=== PATIENT | female | born 1960 | race Caucasian/White ===

== ENCOUNTER 2019-12-29 06:33 | Day surgery (SDC) | payer BC ==
[~2019-12-29 06:33] MED LIST: Lactated Ringers 1,000 ML IV SCH; Lidocaine 1%/Sod Bicarbonate in NS 8.4% 1 ML Syringe IDERM PRN; Sodium Chloride 0.9% 10 ML Syringe FLUSH PRN
[2019-12-29] MEDS ORDERED: Propofol 200 MG/20 ML SDV ONE ×2 (07:21→08:15)
[2019-12-29] MEDS ORDERED: Lidocaine 1% 4 ML ONE (07:21)
[2019-12-29] MEDS ORDERED: fentaNYL 100 MCG/2 ML SDV ONE (07:22)
--- NOTE | 2019-12-29 07:28 | PCM.PREANE ---
Preanesthetic Assessment - Procedure Proposed Procedure: coolonoscopy - Anesthesia/Transfusion/Family Hx Anesthesia History: Prior Anesthesia Without Reaction Family History of Anesthesia Reaction: No Transfusion History: No Prior Transfusion(s) - Review of Systems General: No Symptoms Pulmonary: No Symptoms Cardiovascular: No Symptoms Gastrointestinal: No Symptoms Neurological: No Symptoms Other: Reports: Anxiety - Physical Assessment NPO Status Date: 12/29/19 NPO Status Time: 04:00 Vital Signs: Last Vital Signs Temp 98.0 F 12/29/19 06:40 Pulse 78 12/29/19 06:40 Resp 16 12/29/19 06:40 BP 146/82 H 12/29/19 06:40 Pulse Ox 96 12/29/19 06:40 Height: 5 ft 1 in Weight: 69.853 kg ASA Class: 2 Mental Status: Alert & Oriented x3 Airway Class: Mallampati = 1 Dentition: Reports: Normal Dentition Thyro-Mental Finger Breadths: 3 Mouth Opening Finger Breadths: 3 ROM/Head Extension: Full Lungs: Clear to Auscultation, Normal Respiratory Effort Cardiovascular: Regular Rate, Regular Rhythm - Allergies Allergies/Adverse Reactions: Allergies Allergy/AdvReac Type Severity Reaction Status Date / Time nickel Allergy Rash Verified 12/28/19 13:17 - Blood Blood Available: No - Acknowledgements Anesthesia Type Planned: MAC Pt an Appropriate Candidate for the Planned Anesthesia: Yes Alternatives and Risks of Anesthesia Discussed w Pt/Guardian: Yes Pt/Guardian Understands and Agrees with Anesthesia Plan: Yes PreAnesthesia Questionnaire HEENT History: Reports: Impaired Vision Cardiovascular History: Reports: High Cholesterol Respiratory History: Reports: None Gastrointestinal History: Reports: None Genitourinary History: Reports: None 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 Musculoskeletal History: Reports: None Neurological History: Reports: None Psychiatric History: Reports: Anxiety Endocrine/Metabolic History: Reports: None Hematologic History: Reports: None Immunologic History: Reports: None Oncologic (Cancer) History: Reports: None 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 - Past Surgical History Head Surgeries/Procedures: Reports: None HEENT Surgical History: Reports: Oral Surgery Cardiovascular Surgical History: Reports: None Respiratory Surgical History: Reports: None GI Surgical History: Reports: None Female Surgical History: Reports: Section, Tubal Ligation Endocrine Surgical History: Reports: None Neurological Surgical History: Reports: None Musculoskeletal Surgical History: Reports: None Dermatological Surgical History: Reports: None - SUBSTANCE USE Smoking Status *Q: Former Smoker Tobacco Use Within Last Twelve Months: No Second Hand Smoke Exposure: No Days Per Week of Alcohol Use: 1 Recreational Drug Use History: No - HOME MEDS Home Medications: Home Meds Multivitamin [Daily Multiple Vitamin] 1 tab PO DAILY 12/28/19 [History] Cetirizine [ZyrTEC] 1 tab PO ASDIRECTED 12/29/19 [History] - CURRENT (IN HOUSE) MEDS Current Meds: Current Medications Lactated Ringer's (Ringers, Lactated) 1,000 mls @ 125 mls/hr IV ASDIRECTED DIMA Stop: 12/29/19 23:00 Last Admin: 12/29/19 06:50 Dose: 125 mls/hr Lidocaine/Sodium Bicarbonate (Buffered Lidocaine 1% In Ns 8.4%) 0.25 ml IDERM ONETIME PRN PRN Reason: Prior to IV Start Stop: 12/29/19 18:00 Last Admin: 12/29/19 06:50 Dose: 0.25 ml Sodium Chloride (Saline Flush) 10 ml FLUSH ASDIRECTED PRN PRN Reason: Keep Vein Open Stop: 12/29/19 18:00
--- NOTE | 2019-12-29 08:26 | PCM.PRNOTE ---
- Free Text/Narrative Note: Date: 12/29/2019 Procedure: screening colonoscopy Endoscopist: Kirk Colin MD Findings: Ileocecal valve visualized. Prep was fair. Detailed Report: The patient was taken to the endoscopy suite and placed in left lateral decubitus position. Time out was performed and monitored anesthesia care was initiated. The anus appeared normal. Digital rectal exam was unremarkable. The lubricated colonoscope was then inserted and advanced all the way to the cecum. The ileocecal valve was visualized. The prep was noted to be fair, with copious fluffy effluent requiring continuous irrigation and suctioning to obtain visualization of mucosa. On slow withdrawal of the scope, mucosal surfaces were carefully inspected. A sessile polyp was resected with hot forceps just adjacent to the IC valve, and base was fulgurated. An additional very small sessile polyp was identified and treated in identical fashion in the sigmoid colon. There was mild sigmoid diverticular disease. No hemorrhoids appreciated on retroflexion of the scope within the rectum. The patient tolerated the procedure well. Kirk Colin MD General Surgery
--- NOTE | 2019-12-29 08:31 | PCM48HPAN ---
Post Anesthesia Note - EVALUATION WITHIN 48HRS OF ANESTHETIC Vital Signs in Normal Range: Yes Patient Participated in Evaluation: Yes Respiratory Function Stable: Yes Airway Patent: Yes Cardiovascular Function Stable: Yes Hydration Status Stable: Yes Pain Control Satisfactory: Yes Nausea and Vomiting Control Satisfactory: Yes Mental Status Recovered: Yes Vital Signs: Last Vital Signs Temp 97.8 F 12/29/19 08:25 Pulse 76 12/29/19 08:25 Resp 12 12/29/19 08:25 BP 128/81 12/29/19 08:25 Pulse Ox 96 12/29/19 08:25
== END 2019-12-29 09:15 | disposition home or self-care (01) ==
LOC: JD.SDS 06:33
PROVIDERS: ATTEND Surgery
DX: Z12.11 Encounter for screening for malignant neoplasm of colon (principal); D12.0 Benign neoplasm of cecum; K63.5 Polyp of colon; K57.30 Diverticulosis of large intestine without perforation or abscess without bleeding; I10 Essential (primary) hypertension; E78.00 Pure hypercholesterolemia, unspecified; Z91.048 Other nonmedicinal substance allergy status; Z87.891 Personal history of nicotine dependence
CPT/HCPCS: 45384; J2001; J2704; J3010; J7120; 00812

== ENCOUNTER 2023-11-19 07:02 | Day surgery (SDC) | payer BC ==
[~2023-11-19 07:02] MED LIST changes: -Lidocaine 1%/Sod Bicarbonate in NS 8.4% 1 ML Syringe IDERM PRN; +Sodium Chloride 0.9% 10 ML Syringe FLUSH SCH
[2023-11-19] MEDS ORDERED: Propofol 200 MG/20 ML SDV ONE ×2 (07:41→08:23)
[2023-11-19] MEDS ORDERED: Lidocaine 2% 5 ML SDV ONE (07:44)
[2023-11-19] MEDS ORDERED: HYDROmorphone 0.5 MG/0.5 ML Syringe IVPUSH PRN (08:05)
[2023-11-19] MEDS ORDERED: Ondansetron 4 MG/2 ML SDV IVPUSH PRN (08:05)
[2023-11-19] MEDS ORDERED: fentaNYL 100 MCG/2 ML SDV IVPUSH PRN (08:05)
== END 2023-11-19 10:00 | disposition home or self-care (01) ==
LOC: JD.SDS 07:02
PROVIDERS: ATTEND Student in an Organized Health Care Education/Training Program
DX: Z12.11 Encounter for screening for malignant neoplasm of colon (principal); K57.30 Diverticulosis of large intestine without perforation or abscess without bleeding; F41.9 Anxiety disorder, unspecified; M85.80 Other specified disorders of bone density and structure, unspecified site; I10 Essential (primary) hypertension; Z79.899 Other long term (current) drug therapy; Z86.010 Personal history of colon polyps
CPT/HCPCS: 45378; J2704; J7120; 00811; J3490